=== PATIENT | female | born 1975 | race Caucasian/White ===

== ENCOUNTER 2017-03-13 16:52 | Emergency (ER) | payer MEDICAID ==
[~2017-03-13] VITALS: Ht 154.9 cm; Wt 57.0 kg
[~2017-03-13 16:52] MED LIST: PREN1TAB49 PO
[2017-03-13 17:08] VITALS: Ht 154.9 cm; Wt 57.0 kg
[2017-03-13] MEDS ORDERED: CETI10CA PO (17:25)
[2017-03-13] MEDS ORDERED: AZIT250T94 PO (17:25)
[2017-03-13] MEDS ORDERED: NAPR-260 PO (17:26)
[2017-03-13] MEDS ORDERED: UDROBDM PO (17:26)
[2017-03-13] MEDS ORDERED: ACET500C5 PO (17:28)
--- NOTE | 2017-03-13 17:34 | ERD ---
ER Documentation Chief Complaint Date/Time DATE: 03/13/17 TIME: 17:31 Chief Complaint PT HAS COUGH X 3 WEEKS, LAST AND RIGHT EAR ACHE HPI This a 41-year-old female who presents to the emergency department today complaining of cough for the past 3 weeks. States that she also has bilateral earache and headache for the past 2 weeks and her eyes are itchy as well she also has a sore throat. She has not taken any medication for any of her symptoms. States that she gets fevers at night and that her cough is worse at night denies any vomiting or diarrhea ROS All systems reviewed and are negative except as per history of present illness. Medications Home Meds Active Scripts Acetaminophen* (Tylophen*) 500 Mg Capsule, 1 CAP PO Q6H Y for PAIN AND OR ELEVATED TEMP, #30 CAP Prov:AMBIKA HAMILTON PA-C 03/13/17 Naproxen* (Naprosyn*) 500 Mg Tablet, 500 MG PO BID Y for PAIN AND/OR INFLAMMATION, #30 TAB Prov:AMBIKA HAMILTON PA-C 03/13/17 Guaifenesin-Dextromethorphan* (Robitussin* DM) 100MG/10MG/5ML Syrup, 10 ML PO Q6H Y for COUGH for 5 Days, ML Prov:AMBIKA HAMILTON PA-C 03/13/17 Cetirizine Hcl* (Zyrtec*) 10 Mg Capsule, 10 MG PO DAILY, #14 TAB.CHEW Prov:AMBIKA HAMILTON PA-C 03/13/17 Azithromycin* (Zithromax*) 250 Mg Tablet, 250 MG PO .YulyPACK DIRECTED, #6 TAB TAKE 500 MG (2 TABS) THE FIRST DAY THEN 250 MG (1 TAB) DAYS 2-5 Prov:AMBIKA HAMILTON PA-C 03/13/17 Reported Medications Vits W-Ca,Fe,Fa(<1MG) () 1 Tab Tablet, 1 TAB PO DAILY for 1 Day 09/14/12 Allergies Allergies: Coded Allergies: No Known Allergies (Verified Allergy, 09/14/12) Physical Exam Vitals Vital Signs Date Time Temp Pulse Resp B/P Pulse Ox O2 Delivery O2 Flow Rate FiO2 03/13/17 17:08 99.2 72 18 117/60 97 Physical Exam Const: Pleasant, no acute distress Head: Atraumatic Eyes: Right eye with subconjunctival hemorrhage. Left eye conjunctival normal ENT: Ears TMs normal. Nose no drainage. Throat no erythema no exudate Neck: Full range of motion..~ No meningismus. Resp: Clear to auscultation bilaterally. No absent breath sounds. No wheezing. Cardio: Regular rate and rhythm, no murmurs Skin: No petechiae or rashes Neur: Awake and alert Psych: Normal Mood and Affect Procedures/MDM This a 41-year-old female who presents the emergency department today in the [facility] area with symptoms most consistent with an upper respiratory infection however given the length and duration of symptoms that the patient has had a cough I will give the patient a prescription for azithromycin to treat possible bronchitis. I do not feel that the patient requires a chest x-ray at this time. She is afebrile her oxygen saturations 97%. She is not tachycardic. Low suspicion for PE, pneumonia, pleural effusion, abscess, pneumothorax. Patient's physical exam is otherwise benign although patient did appear to be losing her voice.. I have low suspicion for strep pharyngitis, peritonsillar abscess, retropharyngeal abscess, otitis media, otitis externa PNA, sinusitis, abscess, meningitis, sepsis, or other acute infectious bacterial process. Patient is given a prescription for azithromycin, Zyrtec, Flonase, Robitussin, Naprosyn and Tylenol to treat her symptoms. She is instructed to drink plenty of clear fluids. At this time the patient is stable for discharge and outpatient management. They should follow up with their PCP in the next 1-2. They may return to the emergency department sooner if symptoms persist or worsen. Patient understood and agreed with the plan. Departure Diagnosis: Primary Impression: URI (upper respiratory infection) URI type: unspecified URI Qualified Code: J06.9 - Upper respiratory tract infection, unspecified type Condition: Fair Patient Instructions: Preventing Common Respiratory Infections, What Is Bronchitis? Additional Instructions: Llame al doctor MAANA y danny kt ANGELA PARA DENTRO DE 1-2 RITTER.Dgale a la secretaria que nosotros le instruimos hacer esta angela.Avise o llame si morgan condicin se empeora antes de la angela. Regresa aqui si peor o no mejor. Take antibiotics as prescribed Take Robitussin for cough Take Naprosyn or tylenol for headache and earache Take Zyrtec and Flonase as prescribed Drink plenty of clear fluid AMBIKA HAMILTON PA-C Mar 13, 2017 17:34
== END 2017-03-13 17:30 | disposition home or self-care (01) ==
LOC: FTE 16:52 → E/R 17:30
DX: J06.9 Acute upper respiratory infection, unspecified (principal)
CPT/HCPCS: 99283

== ENCOUNTER 2017-11-12 09:24 | Emergency (ER) | payer MEDICAID ==
[~2017-11-12] VITALS: Ht 152.4 cm; Wt 54.7 kg
[~2017-11-12 09:24] MED LIST changes: +ACET500C5 PO; +AZIT250T94 PO; +CETI10CA PO; +NAPR-260 PO; +UDROBDM PO
[2017-11-12 09:28] VITALS: Ht 152.4 cm; Wt 54.7 kg
[2017-11-12] MEDS ORDERED: ONDANSETRON 4 MG INJ IV STA ×2 (09:58→11:21)
[2017-11-12] MEDS ORDERED: HYDROmorphONE 1 MG/ML SYG IV STA (09:58)
[2017-11-12 10:30] LABS: BASOPHILS % 0.3 % (0.0-2.0); EOSINOPHILS % 0.2 % (0.0-7.0); HEMATOCRIT 41.4 % (37.0-47.0); HEMOGLOBIN 14.3 g/dl (12.0-16.0); LYMPHOCYTES # 1.7 10^3/ul (0.8-2.9); LYMPHOCYTES % 17.2 % (15.0-51.0); MEAN CORPUSCULAR HEMOGLOBIN 30.4 pg (29.0-33.0); MEAN CORPUSCULAR HGB CONC 34.5 g/dl (32.0-37.0); MEAN CORPUSCULAR VOLUME 88.1 fl (82.0-101.0); MEAN PLATELET VOLUME 10.4 fl (7.4-10.4); MONOCYTE # 0.6 10^3/ul (0.3-0.9); MONOCYTES % 6.1 % (0.0-11.0); NEUTROPHIL # 7.3 10^3/ul (1.6-7.5); NEUTROPHILS % 75.9 % (39.0-77.0); PLATELET COUNT 212 10^3/UL (140-415); RED CELL DISTRIBUTION WIDTH 12.4 % (11.5-14.5); WHITE BLOOD COUNT 9.6 10^3/ul (4.8-10.8)
[2017-11-12 11:38] LABS: URINE BLOOD (Dip) POC Trace-intact (NEGATIVE)
[2017-11-12 11:40] LABS: ALBUMIN 4.3 g/dl (3.3-4.9); ALBUMIN/GLOBULIN RATIO 1.1; BILIRUBIN,INDIRECT 0.8 mg/dl (0-1.1); BILIRUBIN,TOTAL 0.8 mg/dl (0.2-1.3); CALCIUM 9.5 mg/dl (8.4-10.2); CREATININE 0.69 mg/dl (0.44-1.00); POTASSIUM 4.2 mmol/L (3.5-5.1); TOTAL PROTEIN 8.2 g/dl (6.1-8.1)
--- NOTE | 2017-11-12 12:17 | RADRPT ---
PROCEDURE: US Abdomen (right upper quadrant). CLINICAL INDICATION: Right upper quadrant abdomen pain. TECHNIQUE: Multiple real-time longitudinal and transverse images of the right upper quadrant of th e abdomen were acquired utilizing a curved array transducer. Images were reviewed on a high-resoluti on PACS workstation. COMPARISON: None FINDINGS: The liver is normal in size and normal in echogenicity. There is no focal hepatic lesion. Color Doppler and pulsed Doppler sonography demonstrate normal a ntegrade flow in the portal vein. There is a gallbladder polyp measuring 0.4 cm. The gallbladder is otherwise normal with no stones or wall thickening. There is no pericholecystic fluid collection. The bile ducts are normal with the common bile duct measuring 3.7 mm in diameter. The pancreas is not well seen due to overlying bowel gas. No free fluid is present. The right kidney measures 8.6 cm. There is normal echogenicity of the right kidney. There is no p erinephric fluid collection. No hydronephrosis, mass, or calculus is seen. IMPRESSION: 1. Gallbladder polyp. 2. No gallstones or evidence of cholecystitis. 3. Is not well seen. 4. Otherwise right upper quadrant abdomen ultrasound. RPTAT: QQ .Antoine Dan MD, MD Date Time Electronically viewed and signed by .Antoine Dan MD, on 11/12/2017 12:17 .R/
--- NOTE | 2017-11-12 12:50 | ERD ---
ER Documentation Chief Complaint Chief Complaint ABD PAIN WITH VOMITING X 3 DAYS HPI This is a 41-year-old female complains of some upper abdominal pain with nausea vomiting is nonbilious and nonbloody for the past 2 days off and on. She says does get a little worse after eating. No diarrhea no bloating no back pain no constipation no fever chest pain or shortness of breath. Pain is described as a dull ache and sometimes burning sensation. No radiation ROS All systems reviewed and are negative except as per history of present illness. Medications Home Meds Active Scripts Acetaminophen* (Tylophen*) 500 Mg Capsule, 1 CAP PO Q6H Y for PAIN AND OR ELEVATED TEMP, #30 CAP Prov:AMBIKA HAMILTON PA-C 03/13/17 Naproxen* (Naprosyn*) 500 Mg Tablet, 500 MG PO BID Y for PAIN AND/OR INFLAMMATION, #30 TAB Prov:AMBIKA HAMILTON PA-C 03/13/17 Guaifenesin-Dextromethorphan* (Robitussin* DM) 100MG/10MG/5ML Syrup, 10 ML PO Q6H Y for COUGH for 5 Days, ML Prov:AMBIKA HAMILTON PA-C 03/13/17 Cetirizine Hcl* (Zyrtec*) 10 Mg Capsule, 10 MG PO DAILY, #14 TAB.CHEW Prov:AMBIKA HAMILTON PA-C 03/13/17 Azithromycin* (Zithromax*) 250 Mg Tablet, 250 MG PO .ZPACK DIRECTED, #6 TAB TAKE 500 MG (2 TABS) THE FIRST DAY THEN 250 MG (1 TAB) DAYS 2-5 Prov:AMBIKA HAMILTON PA-C 03/13/17 Reported Medications Vits W-Ca,Fe,Fa(<1MG) () 1 Tab Tablet, 1 TAB PO DAILY for 1 Day 09/14/12 Allergies Allergies: Coded Allergies: No Known Allergies (Verified Allergy, 09/14/12) PMhx/Soc History of Surgery: No Anesthesia Reaction: No Hx Neurological Disorder: No Hx Respiratory Disorders: No Hx Cardiac Disorders: No Hx Psychiatric Problems: No Hx Miscellaneous Medical Probl: No Hx Alcohol Use: No Hx Substance Use: No Hx Tobacco Use: No FmHx Family History: No coronary disease Physical Exam Vitals Vital Signs Date Time Temp Pulse Resp B/P Pulse Ox O2 Delivery O2 Flow Rate FiO2 11/12/17 09:28 98.8 69 16 120/63 98 Physical Exam Const: Well-developed, well-nourished Head: Atraumatic, normocephalic Eyes: Normal Conjunctiva, PERRLA, EOMI, normal sclera, no nystagmus ENT: Normal External Ears, Nose and Mouth, moist mucus membranes. Neck: Full range of motion. No meningismus, no lymphadenopathy. Resp: Clear to auscultation bilaterally, no wheezing, rhonchi, rales Cardio: Regular rate and rhythm, no murmurs, S1 S2 present Abd: Soft, mild epigastric tenderness no rebound, non distended. Normal bowel sounds, no guarding or rebound, no pulsitile abdominal masses or bruits Skin: No petechiae or rashes, no ecchymosis , no maculopapular rash Back: No midline or flank tenderness Ext: No cyanosis, or edema, FROM x 4, normal inspection, neurovascularly intact x 4 Neur: Awake and alert, STR 5/5 x 4, sensation intact x 4, no focal findings, cerebellum intact Psych: Normal Mood and Affect Result Diagram: 11/12/17 1023 11/12/17 1023 Results 24 hrs Laboratory Tests Test 11/12/17 10:23 11/12/17 11:39 White Blood Count 9.610^3/ul Red Blood Count 4.7010^6/ul Hemoglobin 14.3g/dl Hematocrit 41.4% Mean Corpuscular Volume 88.1fl Mean Corpuscular Hemoglobin 30.4pg Mean Corpuscular Hemoglobin Concent 34.5g/dl Red Cell Distribution Width 12.4% Platelet Count 20232^3/UL Mean Platelet Volume 10.4fl Neutrophils % 75.9% Lymphocytes % 17.2% Monocytes % 6.1% Eosinophils % 0.2% Basophils % 0.3% Nucleated Red Blood Cells % 0.0/100WBC Neutrophils # 7.310^3/ul Lymphocytes # 1.710^3/ul Monocytes # 0.610^3/ul Eosinophils # 0.010^3/ul Basophils # 0.010^3/ul Nucleated Red Blood Cells # 0.010^3/ul Sodium Level 141mmol/L Potassium Level 4.2mmol/L Chloride Level 104mmol/L Carbon Dioxide Level 24mmol/L Anion Gap 17 Blood Urea Nitrogen 15mg/dl Creatinine 0.69mg/dl Glucose Level 120mg/dl Calcium Level 9.5mg/dl Total Bilirubin 0.8mg/dl Direct Bilirubin 0.00mg/dl Indirect Bilirubin 0.8mg/dl Aspartate Amino Transf (AST/SGOT) 24IU/L Alanine Aminotransferase (ALT/SGPT) 24IU/L Alkaline Phosphatase 90IU/L Total Protein 8.2g/dl Albumin 4.3g/dl Globulin 3.90g/dl Albumin/Globulin Ratio 1.10 Lipase 118U/L Bedside Urine pH (LAB) 7.0 Bedside Urine Protein (LAB) 1+ Bedside Urine Glucose (UA) Negative Bedside Urine Ketones (LAB) Trace Bedside Urine Blood Trace-intact Bedside Urine Nitrite (LAB) Negative Bedside Urine Leukocyte Esterase (L Negative Current Medications Medications (Trade) Dose Ordered Sig/Mayra Route PRN Reason Start Time Stop Time Status Last Admin Dose Admin Hydromorphone HCl (Dilaudid) 1 mg ONCE STAT IV 11/12/17 09:58 11/12/17 09:59 DC 11/12/17 10:28 Ondansetron HCl (Zofran Inj) 4 mg ONCE STAT IV 11/12/17 09:58 11/12/17 09:59 DC 11/12/17 10:28 Ondansetron HCl (Zofran Inj) 4 mg ONCE STAT IV 11/12/17 11:21 11/12/17 11:22 DC 11/12/17 11:27 Procedures/MDM PROCEDURE: US Abdomen (right upper quadrant). CLINICAL INDICATION: Right upper quadrant abdomen pain. TECHNIQUE: Multiple real-time longitudinal and transverse images of the right upper quadrant of the abdomen were acquired utilizing a curved array transducer. Images were reviewed on a high-resolution PACS workstation. COMPARISON: None FINDINGS: The liver is normal in size and normal in echogenicity. There is no focal hepatic lesion. Color Doppler and pulsed Doppler sonography demonstrate normal antegrade flow in the portal vein. There is a gallbladder polyp measuring 0.4 cm. The gallbladder is otherwise normal with no stones or wall thickening. There is no pericholecystic fluid collection. The bile ducts are normal with the common bile duct measuring 3.7 mm in diameter. The pancreas is not well seen due to overlying bowel gas. No free fluid is present. The right kidney measures 8.6 cm. There is normal echogenicity of the right kidney. There is no perinephric fluid collection. No hydronephrosis, mass, or calculus is seen. IMPRESSION: 1. Gallbladder polyp. 2. No gallstones or evidence of cholecystitis. 3. Is not well seen. 4. Otherwise right upper quadrant abdomen ultrasound. RPTAT: QQ .Antoine Dan MD, Date Time Electronically viewed and signed by .Antoine Dan MD, on 11/12/2017 12:17 .R/ CC: JESÚS LOBO DO Patient's blood work is unremarkable there is no evidence of cholecystitis or gallstones. Patient likely has some dyspepsia/gastritis or peptic ulcer disease. We will treat accordingly with some omeprazole and pain control and nausea control as well as diet care Departure Diagnosis: Primary Impression: Gastritis Gastritis type: unspecified gastritis Chronicity: unspecified Gastritis bleeding: without bleeding Qualified Code: K29.70 - Gastritis without bleeding, unspecified chronicity, unspecified gastritis type Condition: Stable JESÚS LOBO DO Nov 12, 2017 12:50
[2017-11-12] MEDS ORDERED: ONDA4TAB14 PO (12:53)
[2017-11-12] MEDS ORDERED: HYDR-906 PO (12:53)
[2017-11-12] MEDS ORDERED: OMEP40CA6 PO (12:53)
== END 2017-11-12 13:11 | disposition home or self-care (01) ==
LOC: FTE 09:24
DX: K29.70 Gastritis, unspecified, without bleeding (principal)
CPT/HCPCS: 36415; 76705; 80053; 81003; 83690; 85025; 96374; 96375; 96376; J1170; J2405; Z7502

== ENCOUNTER 2018-01-25 06:41 | Emergency (ER) | END 2018-01-25 08:47 | disposition home or self-care (01) ==

== ENCOUNTER 2018-03-01 10:41 | Emergency (ER) | END 2018-03-01 15:17 | disposition home or self-care (01) ==

== ENCOUNTER 2018-06-28 02:39 | Emergency (ER) | END 2018-06-28 05:45 | disposition home or self-care (01) ==

== ENCOUNTER 2018-09-09 13:32 | Emergency (ER) | END 2018-09-09 18:15 | disposition home or self-care (01) ==

== ENCOUNTER 2018-10-25 09:56 | Emergency (ER) | END 2018-10-25 12:31 | disposition home or self-care (01) ==

== ENCOUNTER 2019-09-25 13:37 | Emergency (ER) | payer SELFPAY ==
[~2019-09-25] VITALS: Ht 152.4 cm; Wt 61.1 kg
[~2019-09-25 13:37] MED LIST changes: -AZIT250T94 PO; +CEPH-443 PO; -CETI10CA PO; +DEXT30DR5 OP; +DOCU-144 PO; +IBUP-1542 PO; -NAPR-260 PO; +PEG1POWD PO; +PENI500T PO; +POLY17PO6 PO; -PREN1TAB49 PO; -UDROBDM PO
[2019-09-25 13:41] VITALS: BP 98/50; PULSE 98; RESP 16; Ht 152.4 cm; Wt 61.1 kg
[2019-09-25] MEDS ORDERED: KETOROLAC 30 MG INJ IM STA (14:08)
[2019-09-25] MEDS ORDERED: DEXAMETHASONE 10 MG/ML 1 ML INJ IM ONE (14:30)
== END 2019-09-25 15:37 | disposition home or self-care (01) ==
LOC: FTE 13:37
DX: J02.0 Streptococcal pharyngitis (principal)
CPT/HCPCS: 71045; 81003; 81025; 87880; 96372; 99284; J1100; J1885